=== PATIENT | female | born 1995 | race Caucasian/White ===

== ENCOUNTER 2016-10-03 17:10 | Emergency (ER) | payer OTHER ==
[2016-10-03 17:28] VITALS: BP 116/68
[2016-10-03] MEDS ORDERED: HYDROcodone/ACETAMIN 5-325 MG* 1 TAB PO ONE (17:41)
--- NOTE | 2016-10-03 17:42 | UC ---
Dental HPI - HPI Summary HPI Summary: swelling right lower jaw--missed appointment for wisdom teeth to be removed. today has increase pain and swelling right lower jaw - History of Current Complaint Chief Complaint: UCDentalProblem Stated Complaint: TOOTH PAIN Time Seen by Provider: 10/03/16 17:32 Hx Obtained From: Patient Hx Last Menstrual Period: 10/02/16 ?: No Onset/Duration: Sudden Onset, Lasting Days - 1, Still Present Severity: Moderate Pain Intensity: 7 Pain Scale Used: 0-10 Numeric Aggravating: Other Alleviating: Nothing Related History: Previous Dental Care on Same Tooth - Allergies/Home Medications Allergies/Adverse Reactions: Allergies Allergy/AdvReac Type Severity Reaction Status Date / Time No Known Drug Allergy Allergy Unknown Verified 08/01/16 14:58 Reaction Details Home Medications: Home Medications Ibuprofen [Advil] 600 mg PO 10/03/16 [History] PMH/Surg Hx/FS Hx/Imm Hx Previously Healthy: No Endocrine History Of: Denies: Diabetes, Thyroid Disease Cardiovascular History Of: Denies: Cardiac Disorders, Hypertension Respiratory History Of: Reports: Bronchitis Denies: COPD, Asthma GI/ History Of: Denies: Ulcer Psychological History Of: Reports: Anxiety, Depression Other History Of: Negative For: Anticoagulant Therapy - Surgical History Surgical History: Yes Surgery Procedure, Year, and Place: 06/2015 LAPAROSCOPIC RIGHT OVARIAN CYSTECTOMY, [facility] - Family History Known Family History: Negative: Cardiac Disease Family History: No FHx of Malignant Hyperthermia. No FHx of Anesthesia Reaction - Social History Occupation: Employed Full-time Lives: With Family Alcohol Use: Occasionally Substance Use Type: None Smoking Status (MU): Heavy Every Day Tobacco Smoker Amount Used/How Often: 1/2 PPD Length of Time of Smoking/Using Tobacco: 5 YEARS Have You Smoked in the Last Year: Yes Review of Systems Constitutional: Negative Skin: Negative Eyes: Negative ENT: Dental Pain - and swellingright lower jaw Respiratory: Negative Cardiovascular: Negative Gastrointestinal: Negative Genitourinary: Negative Motor: Negative Neurovascular: Negative Musculoskeletal: Negative Neurological: Negative Psychological: Negative All Other Systems Reviewed And Are Negative: Yes Physical Exam Triage Information Reviewed: Yes Vital Signs: Initial Vital Signs Temp 97.6 F 10/03/16 17:24 Pulse 76 10/03/16 17:24 Resp 18 10/03/16 17:24 BP 116/68 10/03/16 17:24 Pulse Ox 100 10/03/16 17:24 Eye Exam: Normal Eyes: Positive: Conjunctiva Clear ENT Exam: Normal ENT: Positive: Normal ENT inspection, Hearing grossly normal, TMs normal. Negative: Nasal congestion, Nasal drainage, Tonsillar swelling, Tonsillar exudate, Trismus, Muffled/hoarse voice Dental Exam: Other Dental: Positive: Percussion Tenderness @ - right lower wisdom tooth, Abscess @ - right lower jaw Neck exam: Normal Neck: Positive: Supple, Nontender, No Lymphadenopathy Respiratory Exam: Normal Respiratory: Positive: Chest non-tender, Lungs clear, Normal breath sounds, No respiratory distress, No accessory muscle use Cardiovascular Exam: Normal Cardiovascular: Positive: RRR, No Murmur, Pulses Normal, Brisk Capillary Refill Musculoskeletal Exam: Normal Musculoskeletal: Positive: Strength Intact, ROM Intact, No Edema Neurological Exam: Normal Neurological: Positive: Alert, Muscle Tone Normal Psychological Exam: Normal Psychological: Positive: Normal Response To Family Skin Exam: Normal Dental Complaint Course/Dx - Course Course Of Treatment: clindamycin, pain control, follow with dentist demarco - Differential Dx/Diagnosis Differential Diagnosis/Dx: Dental Abscess, Dental Caries, Odontogenic Pain, Peridontic Disease, Peritonsillar Abcess Provider Diagnoses: abscess right lower jaw, impacted wisdom tooth right lower Discharge - Discharge Plan Condition: Stable Disposition: HOME Prescriptions: Clindamycin Cap(NF) [Cleocin 300 mg Cap(NF)] 300 mg PO Q6H #40 cap HYDROcodone/ACETAMIN 5-325 MG* [Alma 5-325 TAB*] 1 tab PO Q4H PRN #18 tab MDD 6 PRN Reason: Pain Patient Education Materials: Dental Abscess (ED) Forms: *Work Release Referrals: Valorie Delgado MD [Primary Care Provider] - Additional Instructions: Follow with dentist DEMARCO. The Packet we gave you has some resources to find a provider
== END 2016-10-03 18:06 | disposition home or self-care (01) ==
LOC: UCEAST 17:10
DX: M27.2 Inflammatory conditions of jaws (principal); K01.1 Impacted teeth; F17.210 Nicotine dependence, cigarettes, uncomplicated
CPT/HCPCS: 99212; G0463

== ENCOUNTER 2017-01-23 12:58 | Emergency (ER) | payer OTHER ==
[2017-01-23 13:16] VITALS: BP 105/58
[2017-01-23] MEDS ORDERED: Metoclopramide IV* 5 MG/ML 2 ML VIAL IV ONE (13:21)
[2017-01-23] MEDS ORDERED: NS 0.9% 1000 ML* 1,000 ML IV ONE (13:55)
[2017-01-23 13:59] LABS: Hematocrit 40 % (35-47); Hemoglobin 13.3 g/dl (12.0-16.0); Mean Corpuscular HGB Conc 33 g/dl (31-36); Mean Corpuscular Hemoglobin 30 pg (27-31); Mean Corpuscular Volume 91 fL (80-97); Mean Platelet Volume 8 um3 (7.4-10.4); Red Blood Count 4.37 10^6/ul (4.0-5.4); Red Cell Distribution Width 14 % (10.5-15); White Blood Count 12.4 10^3/ul (3.5-10.8)
[2017-01-23 14:20] LABS: Albumin 4.3 g/dL (3.2-5.2); Calcium 9.7 mg/dL (8.6-10.3); EGFR African American 176.2 (>60); Globulin 2.7 g/dL (2-4); Potassium 3.7 mmol/L (3.5-5.0); Total Bilirubin 0.7 mg/dL (0.2-1.0)
--- NOTE | 2017-01-23 14:56 | RAD ---
Indication: Cramping and vomiting. Real-time sonography of the pelvis was performed utilizing transabdominal technique. There is a single intrauterine gestation with a gestational sac size of 2.3 cm corresponding to gestational age of 7 weeks 3 days. A pole is identified with a crown-rump length of 1.1 cm corresponding to gestational age of 7 weeks 2 days. The composite gestational age is 7 weeks 3 days. Estimated date of delivery is September 08, 2017. heart activity is present at 146 bpm. Amniotic fluid is within normal limits. The configuration of the uterus demonstrates a subseptate or arcuate type uterus. The is towards the left side of the uterus. Right ovary measures 2.9 x 1.7 x 2.0 cm. Left ovary measures 2.5 x 1.9 x 2.3 cm. IMPRESSION: THERE IS A SINGLE INTRAUTERINE GESTATION WITH A GESTATIONAL AGE OF 7 WEEKS 3 DAYS. ESTIMATED DATE OF DELIVERY IS SEPTEMBER 08, 2017. HEART ACTIVITY IS NOTED AT 146 BPM. THERE IS A SUBSEPTATE OR ARCUATE TYPE UTERUS WITH THE IN THE LEFT MOIETY.
--- NOTE | 2017-01-23 15:18 | ED ---
- HPI Summary HPI Summary: 21F at 6 weeks presents with nasuea and cramping abdominal pain today. She states she has been having morning sickness but last night she started to be nauseous and vomiting and it has continued throughout today. She states she has been having lower abdominal cramps. She denies any bleeding or vaginal discharge. She denies any dysuria, hematuria, frequency, or urgency. She has never felt this pain before. She has not taken anything for her pain. She denies any fever, constipation or diarrhea. - History of Current Complaint Chief Complaint: EDNauseaVomitDiarrh Stated Complaint: NAUSEA, PAIN, WEAKNESS Time Seen by Provider: 01/23/17 13:19 Pain Intensity: 7 - Assessment Hx Now: No - Allergies/Home Medications Allergies/Adverse Reactions: Allergies Allergy/AdvReac Type Severity Reaction Status Date / Time No Known Drug Allergy Allergy Unknown Verified 08/01/16 14:58 Reaction Details PMH/Surg Hx/FS Hx/Imm Hx Endocrine/Hematology History: Denies: Hx Anticoagulant Therapy, Hx Diabetes, Hx Thyroid Disease Cardiovascular History: Reports: Other Cardiovascular Problems/Disorders - H/O HEART MURMUR Denies: Hx Hypertension Respiratory History: Denies: Hx Asthma, Hx Chronic Obstructive Pulmonary Disease (COPD) GI History: Denies: Hx Ulcer Sensory History: Denies: Hx Contacts or Glasses, Hx Hearing Aid Opthamlomology History: Denies: Hx Contacts or Glasses Psychiatric History: Reports: Hx Anxiety, Hx Depression - Surgical History Surgery Procedure, Year, and Place: 06/2015 LAPAROSCOPIC RIGHT OVARIAN CYSTECTOMY, [facility] Hx Anesthesia Reactions: No Infectious Disease History: Denies: Hx Hepatitis, Hx Human Immunodeficiency Virus (HIV), Traveled Outside the [place] in Last 30 Days - Family History Known Family History: Negative: Cardiac Disease Family History: No FHx of Malignant Hyperthermia. No FHx of Anesthesia Reaction - Social History Alcohol Use: Occasionally Substance Use Type: Reports: None Smoking Status (MU): Heavy Every Day Tobacco Smoker Amount Used/How Often: 1/2 PPD Length of Time of Smoking/Using Tobacco: 5 YEARS Have You Smoked in the Last Year: Yes Review of Systems Negative: Fever Negative: Chest Pain Negative: Shortness Of Breath Positive: Abdominal Pain, Vomiting, Nausea. Negative: Diarrhea All Other Systems Reviewed And Are Negative: Yes Physical Exam - Physical Exam Triage Information Reviewed: Yes Vital Signs Reviewed: Yes Appearance: Positive: Well-Appearing Skin: Positive: Warm, Dry Head/Face: Positive: Normal Head/Face Inspection Eyes: Positive: Normal, Conjunctiva Clear Respiratory/Lung Sounds: Positive: Clear to Auscultation, Breath Sounds Present Cardiovascular: Positive: Normal, RRR Abdomen Description: Positive: Soft, Other: - mild bilateral low quadrant pain Bowel Sounds: Positive: Present Diagnostics - Vital Signs Vital Signs Temp Pulse Resp BP Pulse Ox 01/23/17 13:13 97.6 F 74 16 105/58 100 - Laboratory Lab Results: Lab Results 01/23/17 01/23/17 Range/Units 13:50 13:50 WBC 12.4 H (3.5-10.8) 10^3/ul RBC 4.37 (4.0-5.4) 10^6/ul Hgb 13.3 (12.0-16.0) g/dl Hct 40 (35-47) % MCV 91 (80-97) fL MCH 30 (27-31) pg MCHC 33 (31-36) g/dl RDW 14 (10.5-15) % Plt Count 258 (150-450) 10^3/ul MPV 8 (7.4-10.4) um3 Neut % (Auto) 73.1 (38-83) % Lymph % (Auto) 19.6 L (25-47) % [place] % (Auto) 6.0 (1-9) % Eos % (Auto) 0.9 (0-6) % Baso % (Auto) 0.4 (0-2) % Absolute Neuts (auto) 9.0 H (1.5-7.7) 10^3/ul Absolute Lymphs (auto) 2.4 (1.0-4.8) 10^3/ul Absolute Monos (auto) 0.7 (0-0.8) 10^3/ul Absolute Eos (auto) 0.1 (0-0.6) 10^3/ul Absolute Basos (auto) 0 (0-0.2) 10^3/ul Absolute Nucleated RBC 0.01 10^3/ul Nucleated RBC % 0.1 Sodium 135 (133-145) mmol/L Potassium 3.7 (3.5-5.0) mmol/L Chloride 104 (101-111) mmol/L Carbon Dioxide 22 (22-32) mmol/L Anion Gap 9 (2-11) mmol/L BUN 11 (6-24) mg/dL Creatinine 0.55 (0.51-0.95) mg/dL Est GFR ( Amer) 176.2 (>60) Est GFR (Non-Af Amer) 137.0 (>60) BUN/Creatinine Ratio 20.0 (8-20) Glucose 87 (70-100) mg/dL Calcium 9.7 (8.6-10.3) mg/dL Total Bilirubin 0.70 (0.2-1.0) mg/dL AST 7 L (13-39) U/L ALT 10 (7-52) U/L Alkaline Phosphatase 50 (34-104) U/L C-React Prot High Sens 0.89 mg/L Total Protein 7.0 (6.4-8.9) g/dL Albumin 4.3 (3.2-5.2) g/dL Globulin 2.7 (2-4) g/dL Albumin/Globulin Ratio 1.6 (1-3) Beta HCG, Quant 20214.00 mIU/mL Result Diagrams: 01/23/17 13:50 01/23/17 13:50 Lab Statement: Any lab studies that have been ordered have been reviewed, and results considered in the medical decision making process. - Ultrasound No standard instances Ultrasound Interpretation: Positive (See Comments) - IMPRESSION: THERE IS A SINGLE INTRAUTERINE GESTATION WITH A GESTATIONAL AGE OF 7 WEEKS 3 DAYS. ESTIMATED DATE OF DELIVERY IS SEPTEMBER 08, 2017. HEART ACTIVITY IS NOTED AT 146 BPM. THERE IS A SUBSEPTATE OR ARCUATE TYPE UTERUS WITH THE IN THE LEFT MOIETY. Ultrasound Interpretation Completed By: Radiologist Course/Dx - Course Course Of Treatment: 21F at 6 weeks presents with nasuea and cramping abdominal pain today. She denies any bleeding or vaginal discharge. She denies any dysuria, hematuria, frequency, or urgency. She denies any fever. wbc only midly elevate consistent with , crp normal. gave reglan and nausea resolved. on exam has mild bilateral lower quadrant pain. u/s shows interuterine pregnany. u/a not collected and patient says can not give sample. will treat with reglan and told to follow up with obgyn. patient understands and agrees with plan - Differential Diagnosis/HQI/PQRI: Threatened , Ectopic , Intrauterine - Diagnoses Provider Diagnoses: Abdominal pain affecting Discharge - Discharge Plan Condition: Good Disposition: HOME Prescriptions: Metoclopramide TAB* [Reglan TAB*] 5 mg PO Q6H PRN #25 tab PRN Reason: Nausea Patient Education Materials: Abdominal Pain in (ED) Referrals: Valorie Delgado MD [Primary Care Provider] - Elicia Valencia MD [Medical Doctor] - Additional Instructions: Take Reglan every 6 hours as needed for nausea Take Tylenol for pain Follow up with obgyn Return to ED if develop any new or worsening symptoms
== END 2017-01-23 15:30 | disposition home or self-care (01) ==
LOC: ED 12:58
DX: R10.9 Unspecified abdominal pain (principal); R19.7 Diarrhea, unspecified; R11.2 Nausea with vomiting, unspecified; F17.210 Nicotine dependence, cigarettes, uncomplicated; Z34.91 Encounter for supervision of normal pregnancy, unspecified, first trimester
CPT/HCPCS: 36415; 76817; 80053; 84702; 85025; 86141; 96374; 99283

== ENCOUNTER 2017-04-15 11:38 | Emergency (ER) | payer OTHER ==
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
[2017-04-15 16:03] VITALS: BP 128/78
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
== END 2017-04-15 15:33 | disposition home or self-care (01) ==
LOC: ED 11:38
DX: O26.892 Other specified pregnancy related conditions, second trimester (principal); Z3A.19 19 weeks gestation of pregnancy; O99.342 Other mental disorders complicating pregnancy, second trimester; F32.9 Major depressive disorder, single episode, unspecified; F41.9 Anxiety disorder, unspecified; O99.332 Smoking (tobacco) complicating pregnancy, second trimester; F17.210 Nicotine dependence, cigarettes, uncomplicated; Y04.8XXA Assault by other bodily force, initial encounter; Y92.9 Unspecified place or not applicable
CPT/HCPCS: 76815; 99283

== ENCOUNTER 2017-09-05 07:30 | Inpatient (IN) | payer OTHER ==
[2017-09-05] MEDS ORDERED: Sertraline* 25 MG TAB PO SCH (10:30)
[2017-09-05] MEDS ORDERED: Oxytocin in LR* 20 UNITS/1,000 ML BAG IVPB SCH (11:00)
[2017-09-05 11:11] LABS: Hematocrit 33 % (35-47); Hemoglobin 10.9 g/dl (12.0-16.0); Mean Corpuscular HGB Conc 33 g/dl (31-36); Mean Corpuscular Hemoglobin 30 pg (27-31); Mean Corpuscular Volume 90 fL (80-97); Mean Platelet Volume 8 um3 (7.4-10.4); Platelet Count 322 10^3/ul (150-450); Red Blood Count 3.62 10^6/ul (4.0-5.4); Red Cell Distribution Width 14 % (10.5-15); White Blood Count 14.6 10^3/ul (3.5-10.8)
[2017-09-05] MEDS ORDERED: fentaNYL* 50 MCG/ML 2 ML VIAL (100 MCG VIAL) ONE (11:57)
[2017-09-05] MEDS ORDERED: OBEPIDURAL* 0 ML EPIDURAL ONE (11:57)
[2017-09-05] MEDS ORDERED: Glycerin ADULT SUPP PR PRN (12:58)
[2017-09-05] MEDS ORDERED: Acetaminophen TAB* 325 MG PO PRN (12:58)
[2017-09-05] MEDS ORDERED: Dibucaine 1% 28.35 GM TUBE PR PRN (12:58)
[2017-09-05] MEDS ORDERED: Witch Hazel PAD* JAR TOPICAL PRN (12:58)
[2017-09-05] MEDS ORDERED: Influenza VAC *QUAD* 2017-18* 0.5 ML SYRINGE IM ONE (13:00)
[2017-09-05] MEDS: Ibuprofen TAB* 600 MG PO PRN (14:29)
[2017-09-05] MEDS: Docusate CAP* 100 MG PO SCH ×2 (14:30→21:29)
[2017-09-05] MEDS: Sertraline* 25 MG TAB PO SCH (21:29)
[2017-09-06 06:45] LABS: ABS Basophils 0.1 10^3/ul (0-0.2); ABS Eosinophils 0.2 10^3/ul (0-0.6); ABS Lymphocytes 2.6 10^3/ul (1.0-4.8); ABS Neutrophils 12.4 10^3/ul (1.5-7.7); ABS Nucleated RBC 0 10^3/ul; Hematocrit 29 % (35-47); Hemoglobin 9.7 g/dl (12.0-16.0); Lymphocyte % 16.2 % (25-47); Mean Corpuscular HGB Conc 34 g/dl (31-36); Mean Corpuscular Hemoglobin 31 pg (27-31); Mean Corpuscular Volume 91 fL (80-97); Mean Platelet Volume 7 um3 (7.4-10.4); Nucleated Red Blood Cells % 0; Platelet Count 289 10^3/ul (150-450); Red Blood Count 3.15 10^6/ul (4.0-5.4); Red Cell Distribution Width 15 % (10.5-15); White Blood Count 16.3 10^3/ul (3.5-10.8)
[2017-09-06] MEDS: Ibuprofen TAB* 600 MG PO PRN ×3 (06:54→20:11)
[2017-09-06] MEDS: Ferrous Gluconate TAB* 324 MG TAB PO SCH ×2 (08:57→20:11)
[2017-09-06] MEDS: Docusate CAP* 100 MG PO SCH ×3 (08:57→20:11)
[2017-09-06] MEDS: Sertraline* 25 MG TAB PO SCH (20:11)
[2017-09-07 07:42] VITALS: BP 136/67
[2017-09-07] MEDS: Ferrous Gluconate TAB* 324 MG TAB PO SCH (09:06)
[2017-09-07] MEDS: Docusate CAP* 100 MG PO SCH (09:06)
== END 2017-09-07 10:50 | disposition home or self-care (01) | DRG 560 ==
LOC: MCHOBOUT 07:30 → MCHOB 08:17
PROVIDERS: ADMIT Midwife; ATTEND Midwife
PROC: 10E0XZZ Delivery of Products of Conception, External Approach (ICD-10-PCS; principal; 2017-09-05)
PROC: 0KQM0ZZ Repair Perineum Muscle, Open Approach (ICD-10-PCS; 2017-09-05)
DX: O99.344 Other mental disorders complicating childbirth (principal); D64.9 Anemia, unspecified; O71.82 Other specified trauma to perineum and vulva; O90.81 Anemia of the puerperium; F41.9 Anxiety disorder, unspecified; Z3A.39 39 weeks gestation of pregnancy; Z37.0 Single live birth
CPT/HCPCS: 36415; 80307; 80364; 85025; 85027; 86850; 86900; 86901; A9270-GY; G0480; J3010

== ENCOUNTER 2019-07-19 21:03 | Inpatient (IN) | payer SELFPAY ==
[2019-07-19] MEDS ORDERED: Buffered Lidocaine 1% SYRIN* 1 ML/SYRINGE INTRADERM ONE (21:23)
[2019-07-19] MEDS ORDERED: Penicillin G Potassium IV* 5,000,000 UNITS in NS 0.9% 100 ML* 100 ML IVPB ONE (21:23)
[2019-07-19] MEDS ORDERED: Lactated Ringers 1000 ML Bag* 1,000 ML IV ONE (21:23)
[2019-07-19] MEDS ORDERED: Oxytocin in LR* 20 UNITS/1,000 ML BAG IVPB ONE (21:26)
--- NOTE | 2019-07-19 21:32 | HP ---
General Information - Reason for Visit 23yo, , IUP@38+5 here in active labor - General Information Maternal Age: 23 Grav: 5 Para: 2 SAB: 0 IEA: 1 Estimated Due Date: 07/28/19 Determined By: LMP Gestational Age in Weeks/Days: 38+5 Maternal Blood Type and Rh: O Positive - Results this Serology/RPR Result: Non-Reactive Rubella Result: Immune HBsAg Result: Negative HIV Result: Negative GBS Culture Result: Positive Past Medical History Delivery History: Hx Uncomplicated Vaginal Delivery Past Medical History Comment: Depression/anxiety - therapy service at [facility] Past Surgical History Comment: wisdom tooth extraction laparoscopy ovarian cystectomy Family History Comment: Father: DMII, depression/anxiety, COPD, hypercholesterolemia, HTN, liver disease Mother: BRCA - age 36 PGM: Diabetes, hypercholesterolemia, HTN - Antepartal Records Antepartal Records: Reviewed, Complicated by: - intrauterine synechia noted in LUQ on sono, +THC, hx severe depression/PTSD Review of Systems Constitutional: Uncomfortable CV Complaint: No Respiratory: Shortness of Breath: No Gastrointestinal: No Nausea/Vomiting Genitourinary: No Dysuria, No Bleeding, No Leaking Fluid Musculoskeletal: Contractions Neurological: No Headache, No Visual Changes Movement: Normal Exam Allergies/Adverse Reactions: Allergies No Known Allergies Allergy (Verified 07/19/19 21:13) Vital Signs 07/19/19 21:20 Temperature 97.5 F Pulse Rate 93 Respiratory 18 Rate Blood Pressure 126/69 (mmHg) O2 Sat by Pulse 100 Oximetry - Measurements Height: 5 ft 8 in Weight: 191 lb Weight in lbs: 191.289630 Body Mass Index (BMI): 29.0 Pre- Weight: 144 lb Weight Gained This : 47 lbs and 0 ozs - Exam Breast: Breast Exam Deferred CVA: No CVA Tenderness Extremities: No Edema Heart: Normal Rhythm/Heart Sounds HEENT: No Significant Findings Lungs: Clear Bilaterally Rectal: Rectal Exam Deferred - Abdominal Exam Abdomen Exam: Non-Tender - Ultrasound/Biophysical Profile Ultrasound Status: Not Done Targeted Exam Findings Estimated Weight: 7lb Cervical Exam: 6cm Effacement: 100% Station: -1 Presenting Part: Vertex Membrane Status: Intact EFM Findings - External Monitor Findings Baseline Heart Rate: 130 External Monitor Findings: Accelerations Present, No Pattern of Variable or Late Decelerations, Variability Moderate, Baseline Stable External Monitor Findings Comment: No evidence of metabolic acidemia Contractions: Regular - q2-4 Assessment/Plan - Assessment 23yo, , IUP@38+5 here in active labor GBS+, O+, RI complicated by: +THC, intrauterine synechia noted in LUQ, Hx of severe depression/PTSD No evidence of metabolic acidemia Regular contractions - Obstetrical Risk Factors Obstetrical Risk Factors: GBS Positive - Plan Plan: Admit - Anticipate Vaginal Delivery Plan Comment: Admit to L&D VE prn GBS chemoprophylaxis now Anticipate progression to - Date/Time of Admission Date of Admission: 07/19/19 Time of Admission: 21:00
[2019-07-19 21:51] LABS: ABS Basophils 0.1 10^3/ul (0-0.2); ABS Eosinophils 0.2 10^3/ul (0-0.6); ABS Lymphocytes 3.2 10^3/ul (1.0-4.8); ABS Neutrophils 10.6 10^3/ul (1.5-7.7); Eosinophil % 1.1 %; Hematocrit 30 % (35-47); Hemoglobin 10.7 g/dL (12.0-16.0); Lymphocyte % 21.2 %; Mean Corpuscular HGB Conc 35 g/dL (31-36); Mean Corpuscular Hemoglobin 30 pg (27-31); Mean Corpuscular Volume 86 fL (80-97); Platelet Count 425 10^3/uL (150-450); Red Blood Count 3.51 10^6 /uL (3.70-4.87); Red Cell Distribution Width 15 % (10-15)
[2019-07-19] MEDS ORDERED: Lactated Ringers 1000 ML Bag* 1,000 ML IV SCH (22:00)
[2019-07-19 22:13] LABS: Urine Benzodiazepine Screen None Detected (None Detect); Urine Opiates Screen None Detected (None Detect)
--- NOTE | 2019-07-19 22:25 | PN ---
Progress Note - Progress Note Date of Service: 07/19/19 Note: Pt is working through contractions No evidence of metabolic acidemia Regular contractions AROM to clear fluid Anticipate progression to
--- NOTE | 2019-07-19 23:25 | PN ---
Progress Note - Progress Note Date of Service: 07/19/19 Note: S: pt is in bed working/breathing through contractions. is at bedside and supportive. O: VSS FHR: 120 Ctx every 4-5 minutes Clear fluid A: Active labor No evidence of metabolic acidemia Regular contractions P: VE prn Anticipate progression to
[2019-07-20] MEDS ORDERED: Dibucaine 1% 28.35 GM TUBE PR PRN (00:06)
[2019-07-20] MEDS ORDERED: Acetaminophen TAB* 325 MG PO PRN (00:06)
[2019-07-20] MEDS ORDERED: Witch Hazel PAD* JAR TOPICAL PRN (00:06)
[2019-07-20] MEDS ORDERED: Glycerin ADULT SUPP PR PRN (00:06)
[2019-07-20] MEDS: Oxytocin in LR* 20 UNITS/1,000 ML BAG IVPB SCH ×2 (00:10→04:58)
[2019-07-20] MEDS ORDERED: Lactated Ringers 1000 ML Bag* 1,000 ML IV SCH (01:00)
[2019-07-20] MEDS ORDERED: Penicillin G Potassium IV* 3,000,000 UNITS in NS 0.9% 100 ML* 100 ML IVPB SCH (01:30)
[2019-07-20] MEDS ORDERED: Lidocaine 1% INJ* 10 MG/ML 30 ML SDV ONE (03:00)
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
[2019-07-20 06:51] LABS: Hematocrit 29 % (35-47); Hemoglobin 10.1 g/dL (12.0-16.0); Mean Corpuscular HGB Conc 34 g/dL (31-36); Mean Corpuscular Hemoglobin 30 pg (27-31); Mean Corpuscular Volume 86 fL (80-97); Mean Platelet Volume 6.7 fL (7.4-10.4); Platelet Count 398 10^3/uL (150-450); Red Cell Distribution Width 15 % (10-15)
[2019-07-20 07:20] LABS: ABS Basophils 0.1 10^3/ul (0-0.2); ABS Eosinophils 0.1 10^3/ul (0-0.6); ABS Monocytes 1.3 10^3/ul (0-0.8); ABS Neutrophils 20.4 10^3/ul (1.5-7.7); Eosinophil % 0.5 %; Lymphocyte % 12.2 %
[2019-07-20] MEDS: Ibuprofen TAB* 600 MG PO SCH ×4 (07:31→21:07)
[2019-07-20] MEDS: Docusate CAP* 100 MG PO SCH ×3 (07:57→20:36)
[2019-07-20] MEDS ORDERED: Simethicone TAB* 80 MG TAB.CHEW PO SCH (08:30)
[2019-07-20] MEDS: Ferrous Gluconate TAB* 324 MG TAB PO SCH ×2 (11:35→20:36)
[2019-07-20 22:59] VITALS: BP 118/64
== END 2019-07-20 22:45 | disposition home or self-care (01) | DRG 807 ==
LOC: MCHOBOUT 21:03 → MCHOB 21:26
PROVIDERS: ADMIT Advanced Practice Midwife; ATTEND Advanced Practice Midwife
PROC: 10E0XZZ Delivery of Products of Conception, External Approach (ICD-10-PCS; principal; 2019-07-19)
PROC: 10907ZC Drainage of Amniotic Fluid, Therapeutic from Products of Conception, Via Natural or Artificial Opening (ICD-10-PCS; 2019-07-19)
PROC: 0HQ9XZZ Repair Perineum Skin, External Approach (ICD-10-PCS; 2019-07-19)
DX: O99.824 Streptococcus B carrier state complicating childbirth (principal); Z37.0 Single live birth; O99.344 Other mental disorders complicating childbirth; F32.9 Major depressive disorder, single episode, unspecified; F43.10 Post-traumatic stress disorder, unspecified; O71.82 Other specified trauma to perineum and vulva; O90.81 Anemia of the puerperium; D64.9 Anemia, unspecified; Z3A.38 38 weeks gestation of pregnancy
CPT/HCPCS: 36415; 80307; 85025; 86850; 86900; 86901; A9270-GY; J2540

== ENCOUNTER 2020-11-04 03:13 | Inpatient (IN) ==
[2020-11-04] MEDS ORDERED: Oxytocin in LR 20 UNITS/1,000 ML BAG IVPB ONE (03:24)
[2020-11-04] MEDS ORDERED: Dibucaine 1% OINT 28.35 GM TUBE PR PRN (09:11)
[2020-11-04] MEDS ORDERED: Glycerin ADULT 2.4 gm SUPP PR PRN (09:11)
[2020-11-04] MEDS ORDERED: Witch Hazel PAD JAR TOPICAL PRN (09:11)
[2020-11-04] MEDS ORDERED: Lactated Ringers 1000 ml BAG 1,000 ML IV SCH (10:00)
[2020-11-04 13:18] VITALS: BP 122/68
== END 2020-11-04 12:19 | disposition home or self-care (01) | DRG 560 ==
LOC: MCHOB 03:13
PROVIDERS: ADMIT Obstetrics & Gynecology; ATTEND Obstetrics & Gynecology